=== PATIENT | female | born 1950 | race Caucasian/White ===

== ENCOUNTER 2022-01-14 07:19 | Day surgery (SDC) | payer MEDICARE, SELFPAY ==
[2022-01-09 13:02] VITALS: BMI 27.8
--- NOTE | 2022-01-11 08:09 | MHC.SHP ---
Pre-Procedural Eval Section A Date of Service: 01/11/22 The patient is an INPATIENT: No Changes since office visit: No Cold of Flu in the past 2 weeks, No New Medical Problems, No Changes in Medication and No Patient answered all questions The History & Physical has been completed within 30 days and I have reviewed it.: Yes Section B Chief Complaint: left eye cataract Allergies: Allergies Allergy/AdvReac Type Severity Reaction Status Date / Time latex Allergy Intermediate Itching, Verified 01/09/22 13:01 rash Sulfa (Sulfonamide Allergy Intermediate Itching, Verified 01/09/22 13:01 Antibiotics) rash Plan Diagnosis/Plan: Unchanged I have reviewed the history and physical and performed a pertinent physical examination on my patient. No changes have occurred unless specified.
--- NOTE | 2022-01-11 10:08 | HO.ANESPROP2 ---
Documented by User: Teressa Caraballo NP 01/11/22 10:14 HPI - Anesthesia Eval Consult details Narrative: 71yo F for Left Cataract Extraction IOL Insertion PCP cleared No previous cataract on record [facility] Past Medical History Medical History Aortic stenosis Cardiac murmur Carotid stenosis Cataract GERD (gastroesophageal reflux disease) History of blood transfusion HTN (hypertension) Hx of breast cancer Hx of tear of meniscus of knee joint Hx-TIA (transient ischemic attack) Hyperlipidemia ANDRES (obstructive sleep apnea) Overactive bladder Personal history of COVID-19 Prediabetes Tubular adenoma of colon Vitamin D deficiency Wears hearing aid in both ears Surgical History Surgical History History of anterior colporrhaphy History of History of lumpectomy of right breast Hx of arthroscopy of right knee Hx of colonoscopy Social History Social History Patient Tobacco Use Status: Former Tobacco user Quit Date: 1997 Tobacco use type: Cigarette Use of substances other than those prescribed or required for medical reasons: No Are you DNR?: No Advance Directives: No Advance Directives Information Provided: Yes Advance Directives on File: No Meds Allergies Allergy/AdvReac Type Severity Reaction Status Date / Time latex Allergy Intermediate Itching, Verified 01/14/22 07:51 rash Sulfa (Sulfonamide Allergy Intermediate Itching, Verified 01/14/22 07:51 Antibiotics) rash Home Medications Medication Instructions Recorded Confirmed Last Taken Type anastrozole 1 mg tablet 1 tab PO DAILY 01/09/22 01/09/22 Unknown History calcium carbonate 600 mg-vitamin 1 tab PO BID 01/09/22 01/09/22 Unknown History D3 10 mcg (400 unit) tablet lisinopril 20 mg tablet 1 tab PO DAILY 01/09/22 01/09/22 Unknown History mirabegron 25 mg tablet,extended 1 tab PO DAILY 01/09/22 01/09/22 Unknown History release 24 hr (Myrbetriq) omeprazole 20 mg tablet,delayed 20 mg PO DAILY PRN 01/09/22 01/09/22 Unknown History release simvastatin 40 mg tablet 1 tab PO BEDTIME 01/09/22 01/09/22 Unknown History Exam Exam Date and Time: January 11, 2022 1008 Height,Weight and Vital Signs: Height 5 ft 1 in Weight 66.678 kg Narrative Narrative: Carotid US 10/2020 R ICA 1-49% stenosis L ICA 50-69% stenosis Assessment and Plan Assessment Anesthesia Assessment: Chart Reviewed Documented by User: Ina Jean Baptiste MD 01/14/22 09:02 [facility] Past Medical History Medical History Aortic stenosis Cardiac murmur Carotid stenosis Cataract GERD (gastroesophageal reflux disease) History of blood transfusion HTN (hypertension) Hx of breast cancer Hx of tear of meniscus of knee joint Hx-TIA (transient ischemic attack) Hyperlipidemia ANDRES (obstructive sleep apnea) Overactive bladder Personal history of COVID-19 Prediabetes Tubular adenoma of colon Vitamin D deficiency Wears hearing aid in both ears Surgical History Surgical History History of anterior colporrhaphy History of History of lumpectomy of right breast Hx of arthroscopy of right knee Hx of colonoscopy History of Problems with Anesthesia: No Social History Social History Patient Tobacco Use Status: Former Tobacco user Quit Date: 1997 Tobacco use type: Cigarette Use of substances other than those prescribed or required for medical reasons: No Are you DNR?: No Advance Directives: No Advance Directives Information Provided: Yes Advance Directives on File: No Meds Allergies Allergy/AdvReac Type Severity Reaction Status Date / Time latex Allergy Intermediate Itching, Verified 01/14/22 07:51 rash Sulfa (Sulfonamide Allergy Intermediate Itching, Verified 01/14/22 07:51 Antibiotics) rash Home Medications Medication Instructions Recorded Confirmed Last Taken Type anastrozole 1 mg tablet 1 tab PO DAILY 01/09/22 01/09/22 Unknown History calcium carbonate 600 mg-vitamin 1 tab PO BID 01/09/22 01/09/22 Unknown History D3 10 mcg (400 unit) tablet lisinopril 20 mg tablet 1 tab PO DAILY 01/09/22 01/09/22 Unknown History mirabegron 25 mg tablet,extended 1 tab PO DAILY 01/09/22 01/09/22 Unknown History release 24 hr (Myrbetriq) omeprazole 20 mg tablet,delayed 20 mg PO DAILY PRN 01/09/22 01/09/22 Unknown History release simvastatin 40 mg tablet 1 tab PO BEDTIME 01/09/22 01/09/22 Unknown History Exam Airway Mallampati Class: II TM Dist: >3cm Neck ROM: Full Loose/Missing/Broken Teeth: No Heart: RRR Lungs: CTA Assessment and Plan Assessment Anesthesia Assessment: Anesthesia Plan Discussed Final Anesthetic Review History of Problems with Anesthesia: No NPO: Yes ASA Class: III Final Preanesthetic Review: Meds/Allgs Chart Reviewed, Consent Obtained/Reviewed and Anes Risks/Benef Reviewed Patient Risk: Intermediate Procedure Risk: Low Anesthetic Plan Anesthetic Plan: MAC: Disposition: Standard PACU
[2022-01-14 07:53] VITALS: BP 147/83; PULSE 80; RESP 16; TEMP 36.6; O2SAT 97
[2022-01-14] MEDS: Tetracaine HCl/PF 0.5% Oph Sol 4 ML DROPS 1 DROP EYE-LEFT (08:01)
[2022-01-14] MEDS: Tropicamide 1 % Ophth Sol 3 ML BTL 1 DROP EYE-LEFT ×3 (08:02→08:14)
[2022-01-14] MEDS: Lactated Ringers 500 ML 50 ML IV (08:02)
[2022-01-14] MEDS: Phenylephrine HCL 2.5% Oph SoL 2 ML BOTTLE 1 DROP EYE-LEFT ×3 (08:06→08:18)
--- NOTE | 2022-01-14 08:38 | HO.PNOPHT ---
Ophthalmology Procedure Procedure Date of Service: 01/14/22 Ophthalmology Viscoelastic: [employer]al[employer] Duet Dual Pack Pro Ophthalmology Lenses: TECNIS [id number] (22.5) Procedure Notes: PREOPERATIVE DIAGNOSIS: Decreased visual acuity left eye secondary to cataract POSTOPERATIVE DIAGNOSIS: Same PROCEDURE: Left cataract extraction with intraocular lens insertion SURGEON: Jaziel Judge M.D. ANESTHESIA: Topical/MAC ESTIMATED BLOOD LOSS: None COMPLICATIONS: None After obtaining informed consent, the patient was brought to the operation room suite and placed in the supine position. After adequate sedation per anesthesia, topical drops of Tetracaine were given to the left eye. The eye was then prepped and draped in the usual sterile fashion. The operating room microscope was then positioned over the operative eye and a lid speculum placed. A paracentesis was created. Viscoelastic was then instilled into the anterior chamber. A three plane incision was then created temporally, utilizing a 2.85 mm keratome. Capsulotomy forceps were then utilized to create a circular tear capsulotomy. Hydrodissection and hydrodelineation were carried out until adequate mobilization of the nucleus occurred. Phacoemulsification was then utilized to remove the dense central nucleus followed by removal of the cortical material utilizing the automated aspiration irrigation unit. Viscoat elastic was instilled into the posterior capsular bag followed by placement of a posterior chamber intraocular lens without difficulty. The residual Viscoat elastic was then removed utilizing the automated IA machine. The wound was check and found to be watertight. The patient tolerated the procedure well and the lid speculum was removed. Intracameral injection of Vigamox 0.1 mL followed by a subtenon injection of Kenalog-40 0.2 mL were administered. The patient will be seen in the a.m.
[2022-01-14 09:28] VITALS: BP 139/71; PULSE 79; RESP 16; TEMP 36.4; O2SAT 96
== END 2022-01-14 09:40 | disposition home or self-care (01) ==
PROVIDERS: PCP Internal Medicine; Visit Provider Ophthalmology
PROC: (CPT 66985; principal; 2022-01-14 09:10)
DX: H25.12 Age-related nuclear cataract, left eye (principal); H33.311 Horseshoe tear of retina without detachment, right eye; H52.4 Presbyopia; E78.00 Pure hypercholesterolemia, unspecified; R01.1 Cardiac murmur, unspecified; C50.911 Malignant neoplasm of unspecified site of right female breast; Z79.811 Long term (current) use of aromatase inhibitors; Z79.899 Other long term (current) drug therapy; Z88.2 Allergy status to sulfonamides; Z91.040 Latex allergy status; Z86.16 Personal history of COVID-19; Z87.891 Personal history of nicotine dependence
CPT/HCPCS: 66984; J2250; J3010; J3300; V2632

== ENCOUNTER 2022-01-28 08:12 | Day surgery (SDC) | payer MEDICARE, SELFPAY ==
[2022-01-09 13:07] VITALS: BMI 27.8
--- NOTE | 2022-01-24 12:03 | MHC.SHP ---
Pre-Procedural Eval Section A Date of Service: 01/24/22 The patient is an INPATIENT: No Changes since office visit: No Cold of Flu in the past 2 weeks, No New Medical Problems, No Changes in Medication and No Patient answered all questions The History & Physical has been completed within 30 days and I have reviewed it.: Yes Section B Chief Complaint: Cataract Right Eye Allergies: Allergies Allergy/AdvReac Type Severity Reaction Status Date / Time latex Allergy Intermediate Itching, Verified 01/14/22 07:51 rash Sulfa (Sulfonamide Allergy Intermediate Itching, Verified 01/14/22 07:51 Antibiotics) rash Plan Diagnosis/Plan: Unchanged I have reviewed the history and physical and performed a pertinent physical examination on my patient. No changes have occurred unless specified.
--- NOTE | 2022-01-24 15:21 | P.CONAN_ITS ---
Documented by User: Teressa Caraballo NP 01/24/22 15:22 HPI - Anesthesia Eval Consult details Narrative: 71yo F for Right Cataract Extraction IOL Insertion PCP cleared Left eye done 01/14/22 with TIVA: Fent 50, Midaz 2 PMFSH Past Medical History Medical History Aortic stenosis Cardiac murmur Carotid stenosis Cataract GERD (gastroesophageal reflux disease) History of blood transfusion HTN (hypertension) Hx of breast cancer Hx of tear of meniscus of knee joint Hx-TIA (transient ischemic attack) Hyperlipidemia ANDRES (obstructive sleep apnea) Overactive bladder Personal history of COVID-19 Prediabetes Tubular adenoma of colon Vitamin D deficiency Wears hearing aid in both ears Surgical History Surgical History History of anterior colporrhaphy History of History of lumpectomy of right breast Hx of arthroscopy of right knee Hx of colonoscopy History of Problems with Anesthesia: No Social History Social History Patient Tobacco Use Status: Former Tobacco user Quit Date: 1997 Tobacco use type: Cigarette Use of substances other than those prescribed or required for medical reasons: No Are you DNR?: No Advance Directives: No Advance Directives Information Provided: Yes Advance Directives on File: No Meds Allergies Allergy/AdvReac Type Severity Reaction Status Date / Time latex Allergy Intermediate Itching, Verified 01/14/22 07:51 rash Sulfa (Sulfonamide Allergy Intermediate Itching, Verified 01/14/22 07:51 Antibiotics) rash Home Medications Medication Instructions Recorded Confirmed Last Taken Type anastrozole 1 mg tablet 1 tab PO DAILY 01/09/22 01/09/22 Unknown History calcium carbonate 600 mg-vitamin 1 tab PO BID 01/09/22 01/09/22 Unknown History D3 10 mcg (400 unit) tablet lisinopril 20 mg tablet 1 tab PO DAILY 01/09/22 01/09/22 Unknown History mirabegron 25 mg tablet,extended 1 tab PO DAILY 01/09/22 01/09/22 Unknown History release 24 hr (Myrbetriq) omeprazole 20 mg tablet,delayed 20 mg PO DAILY PRN 01/09/22 01/09/22 Unknown History release simvastatin 40 mg tablet 1 tab PO BEDTIME 01/09/22 01/09/22 Unknown History Exam Exam Date and Time: January 24, 2022 1521 Height,Weight and Vital Signs: Height 5 ft 1 in Weight 66.678 kg Narrative Narrative: Carotid US 10/2020 R ICA 1-49% stenosis L ICA 50-69% stenosis Assessment and Plan Assessment Anesthesia Assessment: Chart Reviewed Final Anesthetic Review History of Problems with Anesthesia: No Documented by User: Rory Petersen MD 01/28/22 08:53 [facility] Past Medical History Medical History Aortic stenosis Cardiac murmur Carotid stenosis Cataract GERD (gastroesophageal reflux disease) History of blood transfusion HTN (hypertension) Hx of breast cancer Hx of tear of meniscus of knee joint Hx-TIA (transient ischemic attack) Hyperlipidemia ANDRES (obstructive sleep apnea) Overactive bladder Personal history of COVID-19 Prediabetes Tubular adenoma of colon Vitamin D deficiency Wears hearing aid in both ears Family History Family history of problems with anesthesia: No Surgical History Surgical History History of anterior colporrhaphy History of History of lumpectomy of right breast Hx of arthroscopy of right knee Hx of colonoscopy Social History Social History Patient Tobacco Use Status: Former Tobacco user Quit Date: 1997 Tobacco use type: Cigarette Use of substances other than those prescribed or required for medical reasons: No Are you DNR?: No Advance Directives: No Advance Directives Information Provided: Yes Advance Directives on File: No Meds Allergies Allergy/AdvReac Type Severity Reaction Status Date / Time latex Allergy Intermediate Itching, Verified 01/14/22 07:51 rash Sulfa (Sulfonamide Allergy Intermediate Itching, Verified 01/14/22 07:51 Antibiotics) rash Home Medications Medication Instructions Recorded Confirmed Last Taken Type anastrozole 1 mg tablet 1 tab PO DAILY 01/09/22 01/09/22 Unknown History calcium carbonate 600 mg-vitamin 1 tab PO BID 01/09/22 01/09/22 Unknown History D3 10 mcg (400 unit) tablet lisinopril 20 mg tablet 1 tab PO DAILY 01/09/22 01/09/22 Unknown History mirabegron 25 mg tablet,extended 1 tab PO DAILY 01/09/22 01/09/22 Unknown History release 24 hr (Myrbetriq) omeprazole 20 mg tablet,delayed 20 mg PO DAILY PRN 01/09/22 01/09/22 Unknown History release simvastatin 40 mg tablet 1 tab PO BEDTIME 01/09/22 01/09/22 Unknown History Exam Airway Mallampati Class: II TM Dist: >3cm Neck ROM: Full Loose/Missing/Broken Teeth: Yes Heart: [id number] Lungs: cta b/l Assessment and Plan Assessment Anesthesia Assessment: Anesthesia Plan Discussed Final Anesthetic Review Family History of Problems with Anesthesia: No NPO: Yes ASA Class: III Final Preanesthetic Review: No Changes in Pt Med Stat, Meds/Allgs Chart Reviewed, Consent Obtained/Reviewed and Anes Risks/Benef Reviewed Patient Risk: Intermediate Procedure Risk: Low Assessment/Block/Sedation in SS: Assess/Block/Sedation-SS Anesthetic Plan Anesthetic Plan: MAC: and Agree w/ Assess. and Plan Disposition: Standard PACU
[2022-01-28 08:44] VITALS: BP 177/72; PULSE 78; RESP 16; TEMP 36.9; O2SAT 97
[2022-01-28] MEDS: Tetracaine HCl/PF 0.5% Oph Sol 4 ML DROPS 1 DROP EYE-RIGHT (08:52)
[2022-01-28] MEDS: Lactated Ringers 500 ML 50 ML IV (08:52)
[2022-01-28] MEDS: Tropicamide 1 % Ophth Sol 3 ML BTL 1 DROP EYE-RIGHT ×3 (08:56→09:03)
[2022-01-28] MEDS: Phenylephrine HCL 2.5% Oph SoL 2 ML BOTTLE 1 DROP EYE-RIGHT ×3 (08:58→09:06)
--- NOTE | 2022-01-28 09:46 | HO.PNOPHT ---
Ophthalmology Procedure Procedure Date of Service: 01/28/22 Ophthalmology Viscoelastic: [employer] Dual Pack Pro Ophthalmology Lenses: TECNIS [id number] Procedure Notes: PREOPERATIVE DIAGNOSIS: Decreased visual acuity right eye secondary to cataract POSTOPERATIVE DIAGNOSIS: Same PROCEDURE: Right cataract extraction with intraocular lens insertion SURGEON: Jaziel Judge M.D. ANESTHESIA: Topical/MAC ESTIMATED BLOOD LOSS: None COMPLICATIONS: None After obtaining informed consent, the patient was brought to the operating room suite and placed in the supine position. After adequate sedation per anesthesia, topical drops of Tetracaine were given to the right eye. The eye was then prepped and draped in the usual sterile fashion. The operating room microscope was then positioned over the operative eye and a lid speculum placed. A paracentesis was created. Viscoelastic was then instilled into the anterior chamber. A three plane incision was then created temporally, utilizing a 2.85 mm keratome. Capsulotomy forceps were then utilized to create a circular tear capsulotomy. Hydrodissection and hydrodelineation were carried out until adequate mobilization of the nucleus occurred. Phacoemulsification was then utilized to remove the dense central nucleus followed by removal of the cortical material utilizing the automated aspiration irrigation unit. Viscoelastic was instilled into the posterior capsular bag followed by placement of a posterior chamber intraocular lens without difficulty. The residual Viscoelastic was then removed utilizing the automated IA machine. The wound was checked and found to be watertight. The patient tolerated the procedure well and the lid speculum was removed. Intracameral injection of Vigamox 0.1 mL followed by a subtenon injection of Kenalog-40 0.2 mL were administered. The patient will be seen in the a.m.
[2022-01-28 10:15] VITALS: BP 155/79; PULSE 81; RESP 17; TEMP 36.5; O2SAT 96
== END 2022-01-28 10:22 | disposition home or self-care (01) ==
PROVIDERS: PCP Internal Medicine; Visit Provider Ophthalmology
PROC: (CPT 66985; principal; 2022-01-28 10:00)
DX: H25.11 Age-related nuclear cataract, right eye (principal); I10 Essential (primary) hypertension; E78.5 Hyperlipidemia, unspecified; G47.33 Obstructive sleep apnea (adult) (pediatric); Z86.73 Personal history of transient ischemic attack (TIA), and cerebral infarction without residual deficits; Z79.82 Long term (current) use of aspirin; Z79.899 Other long term (current) drug therapy; Z99.89 Dependence on other enabling machines and devices; Z88.2 Allergy status to sulfonamides; Z91.040 Latex allergy status
CPT/HCPCS: 66984; J2250; J3010; J3300; V2632